=== PATIENT | female | born 1995 | race Caucasian/White ===

== ENCOUNTER 2022-04-23 10:37 | Outpatient (REF) | payer BC, SELFPAY ==
[2022-04-25 11:40] LABS: HBs Antibody, Quant <3.1 mIU/mL (See Note); Hepatitis B Surface Ab Negative (See Note)
== END 2022-04-23 10:38 | disposition home or self-care (01) ==
LOC: NCHCN 10:37
PROVIDERS: PCP Nurse Practitioner Family; Visit Provider Nurse Practitioner Family
DX: Z13.89 Encounter for screening for other disorder (principal)
CPT/HCPCS: 86706